=== PATIENT | male | born 1980 | race Caucasian/White ===

== ENCOUNTER 2018-09-04 18:31 | Emergency (ER) | payer MEDICAID ==
[~2018-09-04] VITALS: Ht 185.4 cm; Wt 143.4 kg
[~2018-09-04 18:31] MED LIST: IBUP-1986 PO
[2018-09-04 18:37] VITALS: BP 190/99
[2018-09-04] MEDS ORDERED: BACI1PAC7 TP (19:17)
== END 2018-09-04 19:25 | disposition home or self-care (01) ==
LOC: ER 18:32
DX: R21 Rash and other nonspecific skin eruption (principal); I10 Essential (primary) hypertension; J45.909 Unspecified asthma, uncomplicated; Z88.8 Allergy status to other drugs, medicaments and biological substances; Z79.899 Other long term (current) drug therapy
CPT/HCPCS: 99282

== ENCOUNTER 2021-01-21 14:26 | Emergency (ER) | payer MEDICAID ==
[~2021-01-21] VITALS: Ht 185.4 cm; Wt 113.6 kg
[2021-01-21 16:33] VITALS: BP 181/111
[2021-01-21] MEDS ORDERED: SULF1TAB49 PO (16:38)
== END 2021-01-21 16:45 | disposition home or self-care (01) ==
LOC: ER 14:27
DX: L02.416 Cutaneous abscess of left lower limb (principal); L03.114 Cellulitis of left upper limb; I10 Essential (primary) hypertension; J45.909 Unspecified asthma, uncomplicated; Z88.8 Allergy status to other drugs, medicaments and biological substances; Z79.899 Other long term (current) drug therapy
CPT/HCPCS: 99283

== ENCOUNTER 2021-02-05 04:57 | Inpatient (IN) | payer MEDICAID ==
[~2021-02-05] VITALS: Ht 185.4 cm; Wt 250.0 kg
[2021-02-05] MEDS ORDERED: vancomycin/NS 1 GM ADD-VANTAGE 250 ML IV ONE (05:45)
[2021-02-05] MEDS ORDERED: ibuprofen tablet 400 MG TABLET PO ONE (06:50)
[2021-02-05 08:49] LABS: BASOPHILS % (AUTO) 0.3 % (0-1); EOSINOPHILS # (AUTO) 0.2 X10'3 (0-0.9); EOSINOPHILS % (AUTO) 2.3 % (0-6); HEMATOCRIT 45.1 % (42.0-52.0); HEMOGLOBIN 15.4 g/dl (14.0-17.9); LYMPHOCYTES # (AUTO) 1.6 X10'3 (1.1-4.8); LYMPHOCYTES % (AUTO) 17.2 % (21-51); MEAN CORPUSCULAR HEMOGLOBIN 31.9 PG (27.0-31.0); MEAN CORPUSCULAR HGB CONC 34.2 g/dL (33.0-36.5); MEAN CORPUSCULAR VOLUME 93.2 FL (78-98); MONOCYTES # (AUTO) 0.7 X10'3 (0-0.9); MONOCYTES % (AUTO) 7.1 % (2-12); NEUTROPHILS # (AUTO) 6.9 X10'3 (1.8-7.7); NEUTROPHILS % (AUTO) 73.1 % (42-75); PLATELET COUNT 392 X10'3 (140-440); RED BLOOD COUNT 4.83 X10'6 (4.70-6.10); RED CELL DISTRIBUTION WIDTH 12.8 % (11.5-14.5); WHITE BLOOD COUNT 9.4 X10'3 (4.5-11.0)
[2021-02-05 08:52] LABS: ALANINE AMINOTRANSFERASE 19 U/L (12-78); ALBUMIN 3.5 G/DL (3.4-5.0); ALBUMIN/GLOBULIN RATIO 0.7 (1.1-1.5); ALKALINE PHOSPHATASE 86 IU/L (46-116); ANION GAP 8 (8-16); ASPARTATE AMINO TRANSFERASE 16 U/L (10-37); BILIRUBIN,TOTAL 0.3 MG/DL (0.1-1.0); BLOOD UREA NITROGEN 18 MG/DL (7-18); BUN/CREATININE RATIO 21.4 (5.4-32.0); CALCIUM 8.5 MG/DL (8.5-10.1); CHLORIDE 102 MMOL/L (99-107); CREATININE 0.84 MG/DL (0.60-1.10); GLUCOSE 97 MG/DL (70-104); POTASSIUM 3.7 MMOL/L (3.5-5.1); SODIUM 141 MMOL/L (135-145); TOTAL CARBON DIOXIDE 31.2 MMOL/L (24-32); TOTAL PROTEIN 8.3 G/DL (6.4-8.2); eGFR > 90 ML/MIN
[2021-02-05] MEDS ORDERED: piperacillin/tazo 3.375gm/50ml 50 ML IV ONE (10:00)
[2021-02-05] MEDS ORDERED: potassium Cl 20 mEq SR tablet PO PRN ×2 (10:05)
[2021-02-05] MEDS ORDERED: acetaminophen 650mg rectal suppository RC PRN (10:05)
[2021-02-05] MEDS ORDERED: diphenhydrAMINE 25mg capsule PO PRN (10:05)
[2021-02-05] MEDS ORDERED: magnesium hydroxide 30ml (MOM) UD suspension PO PRN (10:05)
[2021-02-05] MEDS ORDERED: magnesium 2GM in 50ml NS 50 ML IV PRN (10:05)
[2021-02-05] MEDS ORDERED: potassium Cl 40MEQ/1/2NS 520ml 520 ML IV PRN ×2 (10:05)
[2021-02-05] MEDS ORDERED: magnesium Cl slow-release 64mg tablet PO PRN (10:05)
[2021-02-05] MEDS ORDERED: morphine 2 MG/ML inj. syringe IV PRN ×2 (10:05)
[2021-02-05] MEDS ORDERED: ondansetron/PF 4mg/2ml inj IV PRN (10:05)
[2021-02-05] MEDS ORDERED: magnesium 4gm in 100ml NS 100 ML IV PRN (10:05)
[2021-02-05] MEDS ORDERED: mag hydrox/Alum hydrox/simeth 30ml oral suspension PO PRN (10:05)
[2021-02-05] MEDS ORDERED: HYDROcodone/acetaminophen 10/325mg tab PO PRN (10:05)
[2021-02-05] MEDS ORDERED: acetaminophen 325mg tablet PO PRN ×2 (10:05)
[2021-02-05] MEDS ORDERED: bisacodyl 10mg suppository rectal RC PRN (10:05)
[2021-02-05] MEDS ORDERED: HYDROcodone/acetaminophen 5mg/325mg tablet PO PRN (10:05)
[2021-02-05 10:27] LABS: HEMOGLOBIN A1C 6.1 % (4.5-6.2)
[2021-02-05] MEDS: normal saline 1000ml 1,000 ML IV SCH ×2 (11:13→20:31)
[2021-02-05 12:31] LABS: CLARITY,URINE CLOUDY (Clear); COLOR,URINE YELLOW (Yellow); GLUCOSE, URINE NEGATIVE (Neg); KETONES,URINE NEGATIVE (Neg); LEUKOCYTE ESTERASE ,URINE NEGATIVE (Neg); NITRITES, URINE NEGATIVE (Neg); OCCULT BLOOD,URINE NEGATIVE (Neg); PH,URINE 7.5 (4.8-8.0); PROTEIN,URINE NEGATIVE (Neg); UROBILINOGEN,URINE 0.2 E.U/dL (0.2-1.0)
[2021-02-05 12:32] LABS: UA COLLECTION TYPE NON-SPECIFIED
[2021-02-05 12:42] LABS: URINE AMPHETAMINE SCREEN POSITIVE (Neg); URINE BARBITUATE SCREEN NEGATIVE (Neg); URINE BENZODIAZEPINES SCREEN NEGATIVE (Neg); URINE CANNABINOID SCREEN NEGATIVE (Neg); URINE COCAINE SCREEN NEGATIVE (Neg); URINE METHADONE SCREEN NEGATIVE (Neg); URINE OPIATE SCREEN POSITIVE (Neg); URINE PHENCYCLIDINE SCREEN NEGATIVE (Neg)
[2021-02-05 12:43] LABS: MUCUS STRANDS FEW /LPF (Neg); SQUAMOUS EPITHELIAL CELL,UR FEW /LPF (FEW)
[2021-02-05 12:45] LABS: AMORPHOUS PHOSPHATES 2+; BACTERIA,URINE FEW /HPF (Neg); RBC,URINE 0-2 /HPF (0-2); WBC,URINE 0-4 /HPF (0-4)
[2021-02-05] MEDS ORDERED: NO HOME MEDS (13:01)
[2021-02-05] MEDS ORDERED: piperacillin/tazo 3.375gm/50ml 50 ML IV SCH (16:00)
[2021-02-05] MEDS: vancomycin/NS 1 GM ADD-VANTAGE 250 ML X 1 DOSE IV SCH ×2 (17:36→23:28)
[2021-02-05] MEDS: K and/or MAG REPLACEMENT MC SCH (20:00)
[2021-02-05] MEDS: heparin, porcine 5000 units/ml vial SQ SCH (20:32)
--- NOTE | 2021-02-05 21:20 | NUR ---
Patient in room ORTHO 4015. I have received report from Derek READ in ED and had the opportunity to ask questions and assume patient care with Janet READ. Patient is stable for transfer to unit.
[2021-02-05 21:40] VITALS: BP 154/104
--- NOTE | 2021-02-05 21:40 | NUR ---
Patient arrived on unit with belongings, vitals stable. Tele monitor applied. IV infusing.
--- NOTE | 2021-02-06 01:04 | NUR ---
Limited range of motion in right hand due to edema Addendum: 02/06/21 at 0112 by Flavia Elder RN Amended: Links added.
[2021-02-06] MEDS: piperacillin/tazo 3.375gm/50ml 50 ML IV SCH ×2 (01:20→08:22)
[2021-02-06] MEDS: normal saline 1000ml 1,000 ML IV SCH (06:05)
--- NOTE | 2021-02-06 06:17 | NUR ---
I have reviewed and agree with the charting and care preformed by Flavia READ, including her assessments and interventions.
--- NOTE | 2021-02-06 06:36 | NUR ---
Problems reprioritized. Patient report given, questions answered & plan of care reviewed with Rosa Mathias RN.
[2021-02-06 06:56] VITALS: BP 172/102
[2021-02-06] MEDS ORDERED: VANCOMYCIN LEVEL IV ONE (07:30)
[2021-02-06] MEDS: K and/or MAG REPLACEMENT MC SCH (08:00)
[2021-02-06] MEDS: vancomycin/NS 1 GM ADD-VANTAGE 250 ML X 1 DOSE IV SCH (08:00)
[2021-02-06] MEDS: heparin, porcine 5000 units/ml vial SQ SCH (08:00)
--- NOTE | 2021-02-06 08:00 | NUR ---
PATIENT REFUSING LAB DRAW. SPOKE WITH PHARMACIST WHO SAID TO HOLD VANCO SINCE WE ARE UNABLE TO GET A TROPH.
[2021-02-06] MEDS ORDERED: amLODIPine 5mg tablet PO ONE (09:35)
[2021-02-06] MEDS ORDERED: propranolol 10mg tablet PO SCH (09:35)
[2021-02-06 10:00] VITALS: BP 167/101
--- NOTE | 2021-02-06 10:43 | NUR ---
PAGER ID: [phone] MESSAGE: Flavia Hogue [id number]: patient refusing lab draw. thanks! [phone]
--- NOTE | 2021-02-06 11:52 | NUR ---
Patient last visualized around 1130, went to check on him. His IV line had been disconnected from his PIV, cafeteria monitor and gown left at bedside. Checked entire room for PIV, the tech and I could not find any evidence that it had been removed from his arm. All personal belongings taken from room. Notified chemical engineering teacher, Beckie Echeverria, INVESTIGATIONS MANAGER, Security and [employer] (officer Carmine) of patient leaving AMA with PIV intact.
[2021-02-06] MEDS ORDERED: lactobacillus rhamnosus 10,000 MMU CELLS/CAPSULE PO SCH (20:00)
[2021-02-07] MEDS ORDERED: amLODIPine 5mg tablet PO SCH (08:00)
== END 2021-02-06 11:30 | disposition left against medical advice (07) | DRG 383 ==
LOC: ER 04:57 → ED HOLD 10:01 → ORTHO 4S 21:35
PROVIDERS: ADMIT Family Medicine; ATTEND Family Medicine
DX: L03.011 Cellulitis of right finger (principal); F15.90 Other stimulant use, unspecified, uncomplicated; M65.841 Other synovitis and tenosynovitis, right hand; I10 Essential (primary) hypertension; J45.20 Mild intermittent asthma, uncomplicated; Z53.29 Procedure and treatment not carried out because of patient's decision for other reasons; L02.511 Cutaneous abscess of right hand; J45.909 Unspecified asthma, uncomplicated; Z87.891 Personal history of nicotine dependence; Z88.8 Allergy status to other drugs, medicaments and biological substances
CPT/HCPCS: 36415; 73120; 76937; 80053; 80305; 81001; 83036; 83605; 85025; 87040; 87081; 99285; G0378; J1644; J2543; J3370; J7030

== ENCOUNTER 2021-12-14 10:16 | Emergency (ER) | payer MEDICAID ==
[~2021-12-14] VITALS: Ht 185.4 cm; Wt 109.1 kg
[~2021-12-14 10:16] MED LIST changes: -IBUP-1986 PO; +NO HOME MEDS
--- NOTE | 2021-12-14 10:21 | NUR ---
pt refusing medical treatment at this time.
[2021-12-14] MEDS ORDERED: amLODIPine 5mg tablet PO ONE (10:45)
[2021-12-14] MEDS ORDERED: lisinopril 10 MG tablet PO ONE (10:45)
[2021-12-14 11:48] VITALS: BP 188/121
== END 2021-12-14 11:50 ==
LOC: ER 10:16
DX: I10 Essential (primary) hypertension (principal); J45.909 Unspecified asthma, uncomplicated; Z02.89 Encounter for other administrative examinations
CPT/HCPCS: 93005; 99283

== ENCOUNTER 2023-03-01 13:46 | Emergency (ER) | payer MEDICAID ==
[~2023-03-01] VITALS: Ht 185.4 cm; Wt 140.9 kg
[2023-03-01 13:49] VITALS: BP 161/89
[2023-03-01] MEDS ORDERED: bacitracin 15gm ointment TP ONE (15:00)
[2023-03-01] MEDS ORDERED: CEPH500C2 PO (16:41)
== END 2023-03-01 16:57 | disposition left against medical advice (07) ==
LOC: ER 13:46
DX: S91.321A Laceration with foreign body, right foot, initial encounter (principal); I10 Essential (primary) hypertension; J45.909 Unspecified asthma, uncomplicated; Z88.8 Allergy status to other drugs, medicaments and biological substances; X58.XXXA Exposure to other specified factors, initial encounter; Y93.89 Activity, other specified; Y92.89 Other specified places as the place of occurrence of the external cause; Y99.8 Other external cause status
CPT/HCPCS: 12042; 73630; 99284; A6449

== ENCOUNTER 2023-04-17 04:04 | Emergency (ER) | payer MEDICAID ==
[~2023-04-17] VITALS: Ht 185.4 cm; Wt 143.2 kg
[2023-04-17] MEDS ORDERED: doxycycline inj 100 MG in normal saline 100ml IV soln 100 ML IV STA (05:26)
[2023-04-17] MEDS ORDERED: LISI20TA28 PO (06:20)
[2023-04-17] MEDS ORDERED: iohexol 300mg/ml 100ml inj. ONE (06:27)
[2023-04-17 06:40] LABS: ALANINE AMINOTRANSFERASE 22 U/L (12-78); ALBUMIN 2.9 G/DL (3.4-5.0); ALBUMIN/GLOBULIN RATIO 0.7 (1.1-1.5); ALKALINE PHOSPHATASE 56 IU/L (46-116); ANION GAP 4 (8-16); ASPARTATE AMINO TRANSFERASE 21 U/L (10-37); BILIRUBIN,TOTAL 0.2 MG/DL (0.1-1.0); BLOOD UREA NITROGEN 27 MG/DL (7-18); BUN/CREATININE RATIO 19.1 (10.0-20.0); CALCIUM 8.4 MG/DL (8.5-10.1); CHLORIDE 102 MMOL/L (99-107); CREATININE 1.41 MG/DL (0.60-1.10); GLUCOSE 107 MG/DL (70-104); POTASSIUM 3.6 MMOL/L (3.5-5.1); SODIUM 138 MMOL/L (135-145); TOTAL CARBON DIOXIDE 31.9 MMOL/L (24-32); TOTAL PROTEIN 7.1 G/DL (6.4-8.2); eGFR 55 ML/MIN
[2023-04-17 06:44] LABS: BASOPHILS # (AUTO) 0.1 X10'3 (0-0.2); BASOPHILS % (AUTO) 1.2 % (0-1); EOSINOPHILS # (AUTO) 0.2 X10'3 (0-0.9); EOSINOPHILS % (AUTO) 1.7 % (0-6); HEMATOCRIT 32.7 % (42.0-52.0); HEMOGLOBIN 11.1 g/dl (14.0-17.9); LYMPHOCYTES # (AUTO) 3.6 X10'3 (1.1-4.8); LYMPHOCYTES % (AUTO) 38.9 % (21-51); MEAN CORPUSCULAR HEMOGLOBIN 30.8 PG (27.0-31.0); MEAN CORPUSCULAR HGB CONC 33.8 g/dL (33.0-36.5); MEAN CORPUSCULAR VOLUME 91.1 FL (78-98); MEAN PLATELET VOLUME 8.1 FL (7.4-10.4); MONOCYTES # (AUTO) 0.6 X10'3 (0-0.9); MONOCYTES % (AUTO) 6.7 % (2-12); NEUTROPHILS # (AUTO) 4.8 X10'3 (1.8-7.7); NEUTROPHILS % (AUTO) 51.5 % (42-75); PLATELET COUNT 370 X10'3 (140-440); RED BLOOD COUNT 3.59 X10'6 (4.70-6.10); RED CELL DISTRIBUTION WIDTH 13.4 % (11.5-14.5); WHITE BLOOD COUNT 9.4 X10'3 (4.5-11.0)
[2023-04-17] MEDS ORDERED: normal saline 1000ML IV soln IVB ONE (09:05)
[2023-04-17 11:15] VITALS: BP 120/70
== END 2023-04-17 11:21 | disposition home or self-care (01) ==
LOC: ER 04:04
DX: S30.1XXA Contusion of abdominal wall, initial encounter (principal); I10 Essential (primary) hypertension; J45.909 Unspecified asthma, uncomplicated; Z88.8 Allergy status to other drugs, medicaments and biological substances; X58.XXXA Exposure to other specified factors, initial encounter; Y93.89 Activity, other specified; Y92.89 Other specified places as the place of occurrence of the external cause; Y99.8 Other external cause status
CPT/HCPCS: 36415; 74177; 80053; 83605; 85025; 85610; 87040; 96361; 96365; 96366; 99285; J3490; J7030; Q9967; A6258; A6402; A6449

== ENCOUNTER 2023-04-18 06:12 | Emergency (ER) | payer MEDICAID ==
[~2023-04-18] VITALS: Ht 185.4 cm; Wt 140.9 kg
[2023-04-18] VITALS (10 sets, daily range): BP systolic 126–147; BP diastolic 77–93
[~2023-04-18 06:12] MED LIST changes: +LISI20TA28 PO; -NO HOME MEDS
[2023-04-18 08:17] LABS: BASOPHILS # (AUTO) 0.1 X10'3 (0-0.2); BASOPHILS % (AUTO) 0.7 % (0-1); EOSINOPHILS # (AUTO) 0.1 X10'3 (0-0.9); EOSINOPHILS % (AUTO) 1.5 % (0-6); HEMATOCRIT 30.2 % (42.0-52.0); HEMOGLOBIN 10.2 g/dl (14.0-17.9); LYMPHOCYTES # (AUTO) 2.4 X10'3 (1.1-4.8); LYMPHOCYTES % (AUTO) 28.3 % (21-51); MEAN CORPUSCULAR HEMOGLOBIN 30.4 PG (27.0-31.0); MEAN CORPUSCULAR HGB CONC 33.7 g/dL (33.0-36.5); MEAN CORPUSCULAR VOLUME 90.2 FL (78-98); MEAN PLATELET VOLUME 7.6 FL (7.4-10.4); MONOCYTES # (AUTO) 0.6 X10'3 (0-0.9); NEUTROPHILS # (AUTO) 5.3 X10'3 (1.8-7.7); NEUTROPHILS % (AUTO) 62.5 % (42-75); PLATELET COUNT 337 X10'3 (140-440); RED BLOOD COUNT 3.35 X10'6 (4.70-6.10); RED CELL DISTRIBUTION WIDTH 13.3 % (11.5-14.5); WHITE BLOOD COUNT 8.5 X10'3 (4.5-11.0)
[2023-04-18] MEDS ORDERED: morphine 2 MG/ML inj. syringe IV PRN (08:55)
[2023-04-18] MEDS ORDERED: ringers solution, lacted 1,000 ML IV SCH (08:55)
[2023-04-18] MEDS ORDERED: morphine 4 MG/ML inj SYRINge IV PRN (08:55)
[2023-04-18] MEDS ORDERED: labetalol 20mg/4ml (5mg/ml) syringe IV PRN (08:55)
[2023-04-18] MEDS ORDERED: ondansetron/PF 4mg/2ml inj IV PRN ×2 (08:55→09:15)
[2023-04-18] MEDS ORDERED: meperidine/PF 25mg/ml syringe IV PRN ×3 (08:55)
[2023-04-18] MEDS ORDERED: acetaminophen 1,000mg/100ml IV 100 ML IV PRN (08:55)
[2023-04-18] MEDS ORDERED: hydrALAZINE 20mg/ml inj. IV PRN (08:55)
[2023-04-18] MEDS ORDERED: sevoflurane 250ml liquid IH ONE (09:05)
[2023-04-18] MEDS ORDERED: fentaNYL/PF 50MCG/1 ML 2ML syringe ONE (09:09)
[2023-04-18] MEDS ORDERED: midazolam 1 mg/ML 2ml injection ONE (09:10)
[2023-04-18] MEDS ORDERED: potassium Cl 20 mEq SR tablet PO PRN ×2 (09:15)
[2023-04-18] MEDS ORDERED: HYDROcodone/acetaminophen 5mg/325mg tablet PO PRN (09:15)
[2023-04-18] MEDS ORDERED: HYDROmorphone/PF 0.2 MG/ML SYRINGE IV PRN (09:15)
[2023-04-18] MEDS ORDERED: acetaminophen 650mg rectal suppository RC PRN (09:15)
[2023-04-18] MEDS ORDERED: HYDROcodone/acetaminophen 10/325mg tab PO PRN ×2 (09:15→10:05)
[2023-04-18] MEDS ORDERED: bisacodyl 10mg suppository rectal RC PRN (09:15)
[2023-04-18] MEDS ORDERED: ondansetron 4mg rapidly disintigrating tab PO PRN (09:15)
[2023-04-18] MEDS ORDERED: magnesium 2GM in 50ml NS 50 ML IV PRN (09:15)
[2023-04-18] MEDS ORDERED: HYDROmorphone inj. 0.5 MG/0.5 ML DISP.SYRIN IV PRN (09:15)
[2023-04-18] MEDS ORDERED: potassium Cl 40MEQ/1/2NS 520ml 520 ML IV PRN (09:15)
[2023-04-18] MEDS ORDERED: normal saline 1000ml 1,000 ML IV SCH (09:15)
[2023-04-18] MEDS ORDERED: mag hydrox/Alum hydrox/simeth 30ml oral suspension PO PRN (09:15)
[2023-04-18] MEDS ORDERED: magnesium hydroxide 30ml (MOM) UD suspension PO PRN (09:15)
[2023-04-18] MEDS ORDERED: acetaminophen 325mg tablet PO PRN ×2 (09:15)
[2023-04-18] MEDS ORDERED: magnesium 4gm in 100ml NS 100 ML IV PRN (09:15)
[2023-04-18] MEDS ORDERED: magnesium Cl slow-release 64mg tablet PO PRN (09:15)
[2023-04-18] MEDS ORDERED: LIDOcaine 2% (20mg/ml) 5ml vial ONE ×2 (09:18→09:24)
[2023-04-18] MEDS ORDERED: propofol inj 20 ML IV ONE ×2 (09:18→09:24)
[2023-04-18 09:21] LABS: ALANINE AMINOTRANSFERASE 20 U/L (12-78); ALBUMIN 2.9 G/DL (3.4-5.0); ALBUMIN/GLOBULIN RATIO 0.7 (1.1-1.5); ALKALINE PHOSPHATASE 55 IU/L (46-116); ANION GAP 4 (8-16); ASPARTATE AMINO TRANSFERASE 14 U/L (10-37); BILIRUBIN,TOTAL 0.2 MG/DL (0.1-1.0); BLOOD UREA NITROGEN 25 MG/DL (7-18); BUN/CREATININE RATIO 24.3 (10.0-20.0); CALCIUM 8.1 MG/DL (8.5-10.1); CHLORIDE 104 MMOL/L (99-107); CREATININE 1.03 MG/DL (0.60-1.10); GLUCOSE 100 MG/DL (70-104); POTASSIUM 3.7 MMOL/L (3.5-5.1); SODIUM 139 MMOL/L (135-145); TOTAL CARBON DIOXIDE 31.4 MMOL/L (24-32); TOTAL PROTEIN 6.8 G/DL (6.4-8.2); eGFR 79 ML/MIN
[2023-04-18] MEDS ORDERED: ceFAZolin 1000mg inj ONE ×3 (09:24)
[2023-04-18] MEDS ORDERED: ondansetron/PF 4mg/2ml inj ONE (09:25)
[2023-04-18] MEDS ORDERED: VANCOmycin 1250MG/NS 250ml Bag 250 ML IV SCH (09:30)
[2023-04-18] MEDS ORDERED: LIDOcaine 1% 30ml preserv. free vial ONE (09:31)
[2023-04-18] MEDS ORDERED: BUPIVAcaine/PF 2.5 mg/ml (0.25%) 30ml vial ONE (09:31)
--- NOTE | 2023-04-18 10:05 | NUR ---
Received from OR via [facility] TO [facility], accompanied by Anesthesiologist DR CLAY and report given by Anesthesiolgist. PT PRESENTS WITH PIV 20G RIGHT AC, ORAL AIRWAY, SPO2 100 10L MASK, ABD DRESSING CDI, LR RUNNIN GAT 100MLS/HR, VSS. Addendum: 04/18/23 at 1022 by Viji Diaz - RORO READ Amended: Links added.
--- NOTE | 2023-04-18 10:25 | NUR ---
ORAL AIRWAY REMOVED, PT TOLERATED WELL. Addendum: 04/18/23 at 1043 by Viji Eduardo RN, RN Amended: Links added.
--- NOTE | 2023-04-18 11:15 | NUR ---
ABLE TO SAFELY AMBULATE AND TRANSFER SELF. IV TAKEN OUT WITHOUT ANY COMPLICATIONS. ALL DISCHARGE INSTRUCTIONS COVERED WITH PATIENT AND ALL QUESTIONS ANSWERED. PATIENT TAKEN OUT VIA WHEELCHAIR TO PERSONAL VEHICLE WHERE FAMILY/FRIEND DROVE PATIENT HOME. Addendum: 04/18/23 at 1122 by Viji Eduardo RN, RN Amended: Links added.
[2023-04-18] MEDS ORDERED: piperacillin/tazo 3.375gm/50ml 50 ML IV SCH (16:00)
[2023-04-18] MEDS ORDERED: docusate sod 100mg capsule PO SCH (20:00)
[2023-04-18] MEDS ORDERED: heparin, porcine 5000 units/ml vial SQ SCH (20:00)
[2023-04-18] MEDS ORDERED: K and/or MAG REPLACEMENT MC SCH (20:00)
[2023-04-19] MEDS ORDERED: VANCOMYCIN LEVEL IV ONE (21:30)
== END 2023-04-18 11:15 | disposition home or self-care (01) ==
LOC: ER 06:13
DX: S30.1XXA Contusion of abdominal wall, initial encounter (principal); I10 Essential (primary) hypertension; J45.909 Unspecified asthma, uncomplicated; Z88.8 Allergy status to other drugs, medicaments and biological substances; X58.XXXA Exposure to other specified factors, initial encounter; Y93.89 Activity, other specified; Y92.89 Other specified places as the place of occurrence of the external cause; Y99.8 Other external cause status
CPT/HCPCS: 22900; 36415; 80053; 85025; 99285; J0690; J2250; J2405; J2704; J3010; J3490; J7030; J7120; Z7506; Z7512; 83735; A4215; A4618; A7000

== ENCOUNTER 2024-01-28 14:39 | Inpatient (IN) | payer MEDICAID ==
[~2024-01-28] VITALS: Ht 185.4 cm; Wt 136.4 kg
[2024-01-28] MEDS: LORazepam 2 mg/ml vial IV ONE (15:46)
[2024-01-28 16:18] LABS: BILIRUBIN,URINE NEGATIVE (Neg); CLARITY,URINE CLEAR (Clear); COLOR,URINE YELLOW (Yellow); GLUCOSE, URINE NEGATIVE (Neg); KETONES,URINE NEGATIVE (Neg); LEUKOCYTE ESTERASE ,URINE NEGATIVE (Neg); NITRITES, URINE NEGATIVE (Neg); OCCULT BLOOD,URINE NEGATIVE (Neg); PROTEIN,URINE NEGATIVE (Neg); UROBILINOGEN,URINE 0.2 E.U/dL (0.2-1.0)
[2024-01-28 16:21] LABS: UA COLLECTION TYPE CLN CATCH MIDSTREAM
[2024-01-28 16:24] LABS: BASOPHILS # (AUTO) 0.1 X10'3 (0-0.2); BASOPHILS % (AUTO) 0.5 % (0-1); EOSINOPHILS % (AUTO) 0 % (0-6); HEMATOCRIT 39.7 % (42.0-52.0); HEMOGLOBIN 13.2 g/dl (14.0-17.9); LYMPHOCYTES # (AUTO) 1.3 X10'3 (1.1-4.8); LYMPHOCYTES % (AUTO) 8.2 % (21-51); MEAN CORPUSCULAR HEMOGLOBIN 29.4 PG (27.0-31.0); MEAN CORPUSCULAR HGB CONC 33.4 g/dL (33.0-36.5); MEAN CORPUSCULAR VOLUME 88.2 FL (78-98); MEAN PLATELET VOLUME 7.5 FL (7.4-10.4); MONOCYTES # (AUTO) 0.7 X10'3 (0-0.9); MONOCYTES % (AUTO) 4.4 % (2-12); NEUTROPHILS # (AUTO) 13.6 X10'3 (1.8-7.7); NEUTROPHILS % (AUTO) 86.9 % (42-75); PLATELET COUNT 475 X10'3 (140-440); RED CELL DISTRIBUTION WIDTH 14.4 % (11.5-14.5); WHITE BLOOD COUNT 15.6 X10'3 (4.5-11.0)
[2024-01-28 16:43] LABS: URINE AMPHETAMINE SCREEN POSITIVE (Neg); URINE BARBITUATE SCREEN NEGATIVE (Neg); URINE BENZODIAZEPINES SCREEN NEGATIVE (Neg); URINE CANNABINOID SCREEN POSITIVE (Neg); URINE COCAINE SCREEN NEGATIVE (Neg); URINE METHADONE SCREEN POSITIVE (Neg); URINE OPIATE SCREEN NEGATIVE (Neg); URINE PHENCYCLIDINE SCREEN NEGATIVE (Neg)
[2024-01-28 16:45] LABS: ALBUMIN 2.6 G/DL (3.4-5.0); ANION GAP 7 (8-16); BLOOD UREA NITROGEN 12 MG/DL (7-18); BUN/CREATININE RATIO 16.2 (10.0-20.0); CALCIUM 8.6 MG/DL (8.5-10.1); CHLORIDE 102 MMOL/L (99-107); CREATININE 0.74 MG/DL (0.60-1.10); GLUCOSE 157 MG/DL (70-104); POTASSIUM 3.8 MMOL/L (3.5-5.1); PRO BRAIN NATRIURETIC PEPTIDE 1067 PG/ML (0-125); SODIUM 139 MMOL/L (135-145); TOTAL CARBON DIOXIDE 29.8 MMOL/L (24-32); eCRCL 145 ML/MIN; eGFR > 90 ML/MIN
[2024-01-28] MEDS: furosemide 10 MG/1 ML 10ml inj IV ONE (19:09)
[2024-01-28] MEDS: ipratropium/albuterol 3ml nebule NEB ONE (19:31)
[2024-01-28 19:33] VITALS: PULSE 72; RESP 14; O2SAT 94
[2024-01-28 19:37] VITALS: PULSE 77; O2SAT 95
[2024-01-28] MEDS ORDERED: magnesium hydroxide 30ml (MOM) UD suspension PO PRN (19:45)
[2024-01-28] MEDS ORDERED: ondansetron/PF 4mg/2ml inj IV PRN (19:45)
[2024-01-28] MEDS ORDERED: morphine 2 MG/ML inj. syringe IV PRN (19:45)
[2024-01-28] MEDS ORDERED: potassium Cl 40MEQ/1/2NS 520ml 520 ML IV PRN (19:45)
[2024-01-28] MEDS ORDERED: potassium Cl 20 mEq SR tablet PO PRN ×2 (19:45)
[2024-01-28] MEDS ORDERED: acetaminophen 325mg tablet PO PRN (19:45)
[2024-01-28] MEDS ORDERED: magnesium Cl slow-release 64mg tablet PO PRN (19:45)
[2024-01-28] MEDS ORDERED: mag hydrox/Alum hydrox/simeth 30ml oral suspension PO PRN (19:45)
[2024-01-28] MEDS ORDERED: magnesium 4gm in 100ml NS 100 ML IV PRN (19:45)
[2024-01-28] MEDS ORDERED: LORazepam 2 mg/ml vial IV PRN (20:00)
[2024-01-28] MEDS: furosemide 40mg/4ml inj IV SCH (20:00)
[2024-01-28] MEDS ORDERED: diphenhydrAMINE 25mg capsule PO PRN (20:00)
[2024-01-28] MEDS: methylPREDNISolone sod succ 125mg/2ml vial IV ONE (20:17)
[2024-01-28] MEDS: azithromycin/NS 500mg/250ml 250 ML IV SCH (20:18)
[2024-01-28] MEDS: enoxaparin 40mg/0.4ml syringe SQ SCH (20:18)
[2024-01-28] MEDS: albuterol 2.5 MG/3 ML nebule NEB SCH (20:53)
[2024-01-28 20:54] VITALS: PULSE 74; RESP 18; O2SAT 96
[2024-01-28 21:01] VITALS: PULSE 74; RESP 16
[2024-01-28] MEDS: CefTRIAXone 2gm/D5W 50ml BAG 50 ML IV SCH (21:30)
[2024-01-28 21:50] LABS: D-DIMER 1.54 MG/L FEU (0-0.50)
[2024-01-28 23:02] VITALS: PULSE 67; RESP 18; O2SAT 96
[2024-01-29] VITALS (18 sets, daily range): BP systolic 131–157; BP diastolic 72–96; PULSE 71–90; RESP 15–22; TEMP 97.3–98.3; O2SAT 92–98
[2024-01-29] MEDS: amLODIPine 5mg tablet PO ONE (00:45)
[2024-01-29] MEDS ORDERED: albuterol 2.5 MG/3 ML nebule NEB PRN (01:00)
[2024-01-29 03:44] LABS: BASOPHILS # (AUTO) 0.1 X10'3 (0-0.2); BASOPHILS % (AUTO) 0.8 % (0-1); EOSINOPHILS % (AUTO) 0.1 % (0-6); HEMATOCRIT 42.3 % (42.0-52.0); HEMOGLOBIN 14.3 g/dl (14.0-17.9); LYMPHOCYTES # (AUTO) 1.1 X10'3 (1.1-4.8); LYMPHOCYTES % (AUTO) 8.1 % (21-51); MEAN CORPUSCULAR HEMOGLOBIN 29.9 PG (27.0-31.0); MEAN CORPUSCULAR HGB CONC 33.7 g/dL (33.0-36.5); MEAN CORPUSCULAR VOLUME 88.6 FL (78-98); MEAN PLATELET VOLUME 7.8 FL (7.4-10.4); MONOCYTES # (AUTO) 0.3 X10'3 (0-0.9); MONOCYTES % (AUTO) 1.9 % (2-12); NEUTROPHILS # (AUTO) 12.3 X10'3 (1.8-7.7); NEUTROPHILS % (AUTO) 89.1 % (42-75); PLATELET COUNT 509 X10'3 (140-440); RED BLOOD COUNT 4.78 X10'6 (4.70-6.10); RED CELL DISTRIBUTION WIDTH 14.3 % (11.5-14.5); WHITE BLOOD COUNT 13.7 X10'3 (4.5-11.0)
[2024-01-29 03:51] LABS: ALBUMIN 2.6 G/DL (3.4-5.0); ANION GAP 7 (8-16); BLOOD UREA NITROGEN 11 MG/DL (7-18); BUN/CREATININE RATIO 13.8 (10.0-20.0); CALCIUM 8.2 MG/DL (8.5-10.1); CHLORIDE 100 MMOL/L (99-107); GLUCOSE 123 MG/DL (70-104); POTASSIUM 3.8 MMOL/L (3.5-5.1); SODIUM 140 MMOL/L (135-145); TOTAL CARBON DIOXIDE 33.4 MMOL/L (24-32); eCRCL 135 ML/MIN; eGFR > 90 ML/MIN
[2024-01-29] MEDS: PERFLUTREN PROTEIN-A MICROSPHR (Optison) 0.22 MG/ML 3ML VIAL IV ONE (07:15)
[2024-01-29] MEDS: amLODIPine 5mg tablet PO SCH (07:46)
[2024-01-29] MEDS: methylPREDNISolone sod succ 125mg/2ml vial IV SCH (07:47)
[2024-01-29] MEDS: lisinopril 5mg tablet PO SCH (07:47)
[2024-01-29] MEDS: ipratropium/albuterol 3ml nebule NEB SCH ×2 (08:53→09:40)
[2024-01-29] MEDS: CefTRIAXone 2gm/D5W 50ml BAG 50 ML IV SCH (18:48)
[2024-01-30] VITALS (8 sets, daily range): BP systolic 138–157; BP diastolic 82–101; PULSE 66–109; RESP 14–20; TEMP 97.9–98.7; O2SAT 90–94
[2024-01-30] MEDS ORDERED: METH10OR11 PO (06:33)
[2024-01-30] MEDS: methadone 10mg tablet PO SCH (07:22)
[2024-01-30] MEDS ORDERED: METHADONE HCL 10MG/1 ML 1mL ORAL SYRINGE PO SCH (08:00)
[2024-01-30] MEDS: azithromycin/NS 500mg/250ml 250 ML IV SCH (13:56)
[2024-01-30] MEDS ORDERED: ALBU8HFA INH (14:01)
[2024-01-30] MEDS ORDERED: IPRA3AMP31 NEB (14:01)
[2024-01-30] MEDS ORDERED: PRED10TA23 PO (14:01)
[2024-01-30] MEDS ORDERED: BUDE10.2 INH (14:01)
[2024-01-30] MEDS ORDERED: ondansetron 4mg rapidly disintigrating tab PO PRN (15:34)
[2024-01-30] MEDS ORDERED: LACT1CAP76 PO (16:19)
[2024-01-30] MEDS ORDERED: CEFD300C3 PO (16:19)
[2024-02-02] MEDS ORDERED: traZODone 50mg tablet PO PRN (20:00)
== END 2024-01-30 15:55 | disposition home or self-care (01) | DRG 720 ==
LOC: ER 14:39 → ED HOLD 19:54 → PCU 3S 01-29 04:45
PROVIDERS: ADMIT Student in an Organized Health Care Education/Training Program; ATTEND Family Medicine
DX: A41.9 Sepsis, unspecified organism (principal); J96.01 Acute respiratory failure with hypoxia; I50.33 Acute on chronic diastolic (congestive) heart failure; J15.9 Unspecified bacterial pneumonia; I11.0 Hypertensive heart disease with heart failure; F15.10 Other stimulant abuse, uncomplicated; J44.1 Chronic obstructive pulmonary disease with (acute) exacerbation; J44.0 Chronic obstructive pulmonary disease with (acute) lower respiratory infection; Z20.822 Contact with and (suspected) exposure to COVID-19
CPT/HCPCS: 36415; 71045; 80048; 80305; 81003; 83880; 84145; 84484; 85025; 85379; 87081; 87502; 87503; 87811; 93005; 93306; 94640; 94760; 96374; 96375; 99285; A4615; A4620; G0378; J0456; J0696; J1650; J1940; J2060; J2930; J7040